=== PATIENT | female | born 1940 | race Caucasian/White ===

== ENCOUNTER 2016-12-30 11:05 | Outpatient (CLI) | payer MEDICARE, BC ==
[~2016-12-30 11:05] MED LIST: CLIN300C97 PO; HYDR1TAB4 PO; LEVO25TA9 PO; PRED5TAB PO; RIVA10TA PO; TRAM50TA2 PO
== END 2016-12-30 23:59 | disposition home health service (06) ==
LOC: WOU 11:05
PROVIDERS: ATTEND Podiatrist Foot & Ankle Surgery
DX: S91.011D Laceration without foreign body, right ankle, subsequent encounter (principal); W54.1XXD Struck by dog, subsequent encounter; M35.3 Polymyalgia rheumatica; R60.0 Localized edema; I87.2 Venous insufficiency (chronic) (peripheral); T86.821 Skin graft (allograft) (autograft) failure; Z87.891 Personal history of nicotine dependence
CPT/HCPCS: A6402 ×2; A6452; G0463

== ENCOUNTER 2017-02-10 11:32 | Outpatient (CLI) | payer MEDICARE, BC | END 2017-02-10 23:59 | disposition home health service (06) | LOC: WOU 11:32 | PROVIDERS: ATTEND Podiatrist Foot & Ankle Surgery | DX: T86.821 Skin graft (allograft) (autograft) failure (principal); L97.312 Non-pressure chronic ulcer of right ankle with fat layer exposed; S91.01 Laceration without foreign body of ankle; W54.1XXS Struck by dog, sequela; M35.3 Polymyalgia rheumatica; I87.2 Venous insufficiency (chronic) (peripheral); R60.0 Localized edema; Z96.643 Presence of artificial hip joint, bilateral; Z96.651 Presence of right artificial knee joint | CPT/HCPCS: A6207; A6402; A6452; G0463 ==

== ENCOUNTER 2017-02-20 09:27 | Outpatient (CLI) | payer MEDICARE, BC | END 2017-02-20 23:59 | disposition home health service (06) | LOC: WOU 09:27 | PROVIDERS: ATTEND Podiatrist Foot & Ankle Surgery | DX: M35.3 Polymyalgia rheumatica (principal); L97.312 Non-pressure chronic ulcer of right ankle with fat layer exposed; E87.2 Acidosis; R60.0 Localized edema; Z96.643 Presence of artificial hip joint, bilateral; Z96.651 Presence of right artificial knee joint; Z87.891 Personal history of nicotine dependence; Z86.718 Personal history of other venous thrombosis and embolism; Z88.0 Allergy status to penicillin | CPT/HCPCS: A6207; A6402; A6452; G0463; J3490 ==

== ENCOUNTER 2017-02-27 10:25 | Outpatient (CLI) | payer MEDICARE, BC | END 2017-02-27 23:59 | disposition home health service (06) | LOC: WOU 10:25 | PROVIDERS: ATTEND Podiatrist Foot & Ankle Surgery | DX: L97.312 Non-pressure chronic ulcer of right ankle with fat layer exposed (principal); S91.01 Laceration without foreign body of ankle; W54.1XXS Struck by dog, sequela; M35.3 Polymyalgia rheumatica; Z88.0 Allergy status to penicillin; R60.0 Localized edema; T86.821 Skin graft (allograft) (autograft) failure; I87.2 Venous insufficiency (chronic) (peripheral) | CPT/HCPCS: A6207; A6402; A6452; G0463 ==

== ENCOUNTER 2017-03-06 09:11 | Outpatient (CLI) | payer MEDICARE, BC | END 2017-03-06 23:59 | disposition home or self-care (01) | LOC: WOU 09:11 | PROVIDERS: ATTEND Podiatrist Foot & Ankle Surgery | DX: L97.312 Non-pressure chronic ulcer of right ankle with fat layer exposed (principal); S91.01 Laceration without foreign body of ankle; W54.1XXS Struck by dog, sequela; M35.3 Polymyalgia rheumatica; Z88.0 Allergy status to penicillin; R60.0 Localized edema; T86.821 Skin graft (allograft) (autograft) failure; I87.2 Venous insufficiency (chronic) (peripheral) | CPT/HCPCS: A6207; A6402; A6452; G0463 ==

== ENCOUNTER 2017-03-20 09:23 | Outpatient (CLI) | payer MEDICARE, BC | END 2017-03-20 23:59 | disposition home health service (06) | LOC: WOU 09:23 | PROVIDERS: ATTEND Podiatrist Foot & Ankle Surgery | DX: L97.312 Non-pressure chronic ulcer of right ankle with fat layer exposed (principal); S91.01 Laceration without foreign body of ankle; W54.1XXS Struck by dog, sequela; M35.3 Polymyalgia rheumatica; T86.821 Skin graft (allograft) (autograft) failure; R60.0 Localized edema; Z88.0 Allergy status to penicillin; I87.2 Venous insufficiency (chronic) (peripheral); Z96.643 Presence of artificial hip joint, bilateral; Z96.651 Presence of right artificial knee joint; Z86.718 Personal history of other venous thrombosis and embolism | CPT/HCPCS: A6207; A6402; A6452; G0463 ==

== ENCOUNTER 2017-03-27 09:45 | Outpatient (CLI) | payer MEDICARE, BC | END 2017-03-27 23:59 | disposition home health service (06) | LOC: WOU 09:45 | PROVIDERS: ATTEND Podiatrist Foot & Ankle Surgery | DX: S91.011D Laceration without foreign body, right ankle, subsequent encounter (principal); W54.1XXD Struck by dog, subsequent encounter; M35.3 Polymyalgia rheumatica; T86.821 Skin graft (allograft) (autograft) failure; I87.2 Venous insufficiency (chronic) (peripheral); R60.0 Localized edema; Z87.891 Personal history of nicotine dependence | CPT/HCPCS: A6207; A6402; A6452; G0463 ==

== ENCOUNTER 2017-04-03 09:06 | Day surgery (SDC) | payer MEDICARE, BC ==
[2017-04-03] MEDS ORDERED: MINERAL OIL 10 ML VIAL MC ONE (10:32)
[2017-04-03] MEDS ORDERED: LIDOCAINE HCL/PF 1% 30 ML SDV ONE (10:32)
[2017-04-03] MEDS ORDERED: BUPIVACAINE MPF 0.5% W/EPI INJ 30 ML VIAL ONE (10:32)
[2017-04-03] MEDS ORDERED: CLINDAMYCIN 900 MG/6 ML VIAL ONE (10:55)
[2017-04-03] MEDS ORDERED: MIDAZOLAM HCL 2 MG/2ML VIAL ONE (10:56)
[2017-04-03] MEDS ORDERED: FENTANYL PF 100MCG/2ML AMPUL ONE (10:56)
[2017-04-03] MEDS ORDERED: oxyCODONE/APAP (5/325 MG) 1 UDTAB TABLET ONE (12:44)
[2017-04-03] MEDS ORDERED: oxyCODONE/APAP (5/325 MG) 1 UDTAB TABLET PO ONE (13:00)
== END 2017-04-03 13:25 | disposition home or self-care (01) ==
LOC: DS 09:06
PROVIDERS: ATTEND Podiatrist Foot & Ankle Surgery
DX: S91.051A Open bite, right ankle, initial encounter (principal); W54.0XXA Bitten by dog, initial encounter; Y93.89 Activity, other specified; Y92.89 Other specified places as the place of occurrence of the external cause; Y99.8 Other external cause status; M35.3 Polymyalgia rheumatica; I10 Essential (primary) hypertension; Z90.710 Acquired absence of both cervix and uterus
CPT/HCPCS: 11043; 11046; A6209; A6402; J2250; J2704; J3010; J3490 ×3; Z7610

== ENCOUNTER 2017-04-07 10:45 | Outpatient (CLI) | payer MEDICARE, BC | END 2017-04-07 23:59 | disposition home health service (06) | LOC: WOU 10:45 | PROVIDERS: ATTEND Podiatrist Foot & Ankle Surgery | DX: T86.821 Skin graft (allograft) (autograft) failure (principal); L97.312 Non-pressure chronic ulcer of right ankle with fat layer exposed; M35.3 Polymyalgia rheumatica; I87.2 Venous insufficiency (chronic) (peripheral); S91.01 Laceration without foreign body of ankle; W54.1XXS Struck by dog, sequela; Z86.718 Personal history of other venous thrombosis and embolism; Z96.651 Presence of right artificial knee joint; Z96.643 Presence of artificial hip joint, bilateral; Z87.891 Personal history of nicotine dependence | CPT/HCPCS: 11042; 11045; 97605; A6402 ==

== ENCOUNTER → 2017-04-10 | Outpatient (CLI) | payer MEDICARE, BC | END | disposition home health service (06) | LOC: WOU 10:45 | PROVIDERS: ATTEND Podiatrist Foot & Ankle Surgery | DX: S91.011D Laceration without foreign body, right ankle, subsequent encounter (principal); W54.1XXD Struck by dog, subsequent encounter; M35.3 Polymyalgia rheumatica; T86.821 Skin graft (allograft) (autograft) failure; M79.661 Pain in right lower leg; I87.2 Venous insufficiency (chronic) (peripheral); Z87.891 Personal history of nicotine dependence; Z96.643 Presence of artificial hip joint, bilateral; Z96.651 Presence of right artificial knee joint; Z86.718 Personal history of other venous thrombosis and embolism; L97.312 Non-pressure chronic ulcer of right ankle with fat layer exposed | CPT/HCPCS: A6402; A6452; G0463 ==

== ENCOUNTER 2017-04-14 10:40 | Outpatient (CLI) | payer MEDICARE, BC | END 2017-04-14 23:59 | disposition home health service (06) | LOC: WOU 10:40 | PROVIDERS: ATTEND Podiatrist Foot & Ankle Surgery | DX: T86.821 Skin graft (allograft) (autograft) failure (principal); M35.3 Polymyalgia rheumatica; L97.312 Non-pressure chronic ulcer of right ankle with fat layer exposed; I87.2 Venous insufficiency (chronic) (peripheral); Z87.891 Personal history of nicotine dependence; Z96.643 Presence of artificial hip joint, bilateral; Z96.651 Presence of right artificial knee joint; Z86.718 Personal history of other venous thrombosis and embolism; S91.01 Laceration without foreign body of ankle; W54.1XXS Struck by dog, sequela | CPT/HCPCS: 11042; 11045; A6207; A6402; A6452 ==

== ENCOUNTER 2017-04-17 10:13 | Outpatient (CLI) | payer MEDICARE, BC | END 2017-04-17 23:59 | disposition home health service (06) | LOC: WOU 10:13 | PROVIDERS: ATTEND Podiatrist Foot & Ankle Surgery | DX: M35.3 Polymyalgia rheumatica (principal); L97.312 Non-pressure chronic ulcer of right ankle with fat layer exposed; S91.01 Laceration without foreign body of ankle; W54.1XXS Struck by dog, sequela; T86.821 Skin graft (allograft) (autograft) failure; I87.2 Venous insufficiency (chronic) (peripheral); R60.0 Localized edema; Z87.891 Personal history of nicotine dependence; Z86.718 Personal history of other venous thrombosis and embolism; Z88.0 Allergy status to penicillin | CPT/HCPCS: A6402 ×2; A6452; G0463 ==

== ENCOUNTER 2017-04-24 10:05 | Outpatient (CLI) | payer MEDICARE, BC | END 2017-04-24 23:59 | disposition home health service (06) | LOC: WOU 10:05 | PROVIDERS: ATTEND Podiatrist Foot & Ankle Surgery | DX: S91.011D Laceration without foreign body, right ankle, subsequent encounter (principal); W54.1XXD Struck by dog, subsequent encounter; R60.0 Localized edema; M35.3 Polymyalgia rheumatica; Z96.643 Presence of artificial hip joint, bilateral; Z96.651 Presence of right artificial knee joint; Z86.718 Personal history of other venous thrombosis and embolism; Z87.891 Personal history of nicotine dependence; M79.661 Pain in right lower leg | CPT/HCPCS: A6207; A6402; A6452; G0463 ==

== ENCOUNTER 2017-05-05 10:22 | Outpatient (CLI) | payer MEDICARE, BC | END 2017-05-05 23:59 | disposition home health service (06) | LOC: WOU 10:22 | PROVIDERS: ATTEND Podiatrist Foot & Ankle Surgery | DX: L97.312 Non-pressure chronic ulcer of right ankle with fat layer exposed (principal); M35.3 Polymyalgia rheumatica; R60.0 Localized edema; T86.821 Skin graft (allograft) (autograft) failure; I87.2 Venous insufficiency (chronic) (peripheral); S91.01 Laceration without foreign body of ankle; W54.1XXS Struck by dog, sequela | CPT/HCPCS: A6207; A6402; A6452; G0463 ==

== ENCOUNTER 2017-05-08 11:31 | Day surgery (SDC) | payer MEDICARE, BC ==
[2017-05-08] MEDS ORDERED: IV NS 0.9% 1,000 ML ONE (12:22)
[2017-05-08] MEDS ORDERED: IV SET PRIMARY 1 EA INFUS.SET MC ONE (12:22)
[2017-05-08] MEDS ORDERED: NEEDLELESS EST SET LARGE BORE 1 EA INFUS.SET MC ONE (12:22)
[2017-05-08] MEDS ORDERED: FENTANYL PF 100MCG/2ML AMPUL ONE ×2 (12:42→14:22)
[2017-05-08] MEDS ORDERED: BUPIVACAINE MPF 0.5% W/EPI INJ 30 ML VIAL ONE (12:48)
[2017-05-08] MEDS ORDERED: CLINDAMYCIN 900 MG/6 ML VIAL ONE (12:49)
[2017-05-08] MEDS ORDERED: MINERAL OIL 10 ML VIAL MC ONE (12:50)
[2017-05-08] MEDS ORDERED: BUPIVACAINE 0.5 % PF 150 MG/30 ML VIAL ONE (13:24)
[2017-05-08] MEDS ORDERED: oxyCODONE/APAP (5/325 MG) 1 UDTAB TABLET ONE (14:47)
[2017-05-08] MEDS ORDERED: ANESTHESIA TRAY IN PYXIS 1 EA TRAY MC ONE (15:01)
[2017-05-08] MEDS ORDERED: oxyCODONE/APAP (5/325 MG) 1 UDTAB TABLET PO PRN (16:00)
== END 2017-05-08 15:25 | disposition home or self-care (01) ==
LOC: DS 11:31
PROVIDERS: ATTEND Podiatrist Foot & Ankle Surgery
DX: S91.001A Unspecified open wound, right ankle, initial encounter (principal); X58.XXXA Exposure to other specified factors, initial encounter; Y93.89 Activity, other specified; Y92.89 Other specified places as the place of occurrence of the external cause; Y99.8 Other external cause status; M35.3 Polymyalgia rheumatica; D64.89 Other specified anemias; I10 Essential (primary) hypertension; I05.8 Other rheumatic mitral valve diseases; E53.8 Deficiency of other specified B group vitamins; Z88.0 Allergy status to penicillin; Z88.8 Allergy status to other drugs, medicaments and biological substances
CPT/HCPCS: A6209; A6402; J1100; J2405; J2704; J3010; J3490; J7030

== ENCOUNTER 2017-05-12 10:30 | Outpatient (CLI) | payer MEDICARE, BC | END 2017-05-12 23:59 | disposition home health service (06) | LOC: WOU 10:30 | PROVIDERS: ATTEND Podiatrist Foot & Ankle Surgery | DX: Z48.817 Encounter for surgical aftercare following surgery on the skin and subcutaneous tissue (principal); M35.3 Polymyalgia rheumatica; M06.9 Rheumatoid arthritis, unspecified; Z87.891 Personal history of nicotine dependence; I87.2 Venous insufficiency (chronic) (peripheral); R60.0 Localized edema; L97.319 Non-pressure chronic ulcer of right ankle with unspecified severity; S91.01 Laceration without foreign body of ankle; W54.1XXS Struck by dog, sequela | CPT/HCPCS: A6207; A6402; A6452; G0463; J3490 ==

== ENCOUNTER 2017-05-15 10:30 | Outpatient (CLI) | payer MEDICARE, BC | END 2017-05-15 23:59 | disposition home health service (06) | LOC: WOU 10:30 | PROVIDERS: ATTEND Podiatrist Foot & Ankle Surgery | DX: L97.311 Non-pressure chronic ulcer of right ankle limited to breakdown of skin (principal); T86.821 Skin graft (allograft) (autograft) failure; M35.3 Polymyalgia rheumatica; R60.0 Localized edema; I87.2 Venous insufficiency (chronic) (peripheral); S91.01 Laceration without foreign body of ankle; W54.1XXS Struck by dog, sequela; Z86.718 Personal history of other venous thrombosis and embolism | CPT/HCPCS: A6207; A6402; A6452; G0463 ==

== ENCOUNTER 2017-05-19 10:18 | Outpatient (CLI) | payer MEDICARE, BC | END 2017-05-19 23:59 | disposition home health service (06) | LOC: WOU 10:18 | PROVIDERS: ATTEND Podiatrist Foot & Ankle Surgery | DX: T86.821 Skin graft (allograft) (autograft) failure (principal); M35.3 Polymyalgia rheumatica; L97.311 Non-pressure chronic ulcer of right ankle limited to breakdown of skin; S91.01 Laceration without foreign body of ankle; W54.1XXS Struck by dog, sequela; S91.012A Laceration without foreign body, left ankle, initial encounter; X58.XXXA Exposure to other specified factors, initial encounter; Y92.89 Other specified places as the place of occurrence of the external cause | CPT/HCPCS: A6207; A6402; A6452; G0463 ==

== ENCOUNTER 2017-05-20 08:33 | Outpatient (CLI) | payer MEDICARE, BC | END 2017-05-20 23:59 | disposition home or self-care (01) | LOC: WOU 08:33 | PROVIDERS: ATTEND Specialist | DX: T86.821 Skin graft (allograft) (autograft) failure (principal); L97.311 Non-pressure chronic ulcer of right ankle limited to breakdown of skin; S91.01 Laceration without foreign body of ankle; W54.1XXS Struck by dog, sequela; M35.3 Polymyalgia rheumatica; I87.2 Venous insufficiency (chronic) (peripheral); R60.0 Localized edema; Z96.643 Presence of artificial hip joint, bilateral; Z96.651 Presence of right artificial knee joint; Z87.891 Personal history of nicotine dependence; Z79.899 Other long term (current) drug therapy; Z86.718 Personal history of other venous thrombosis and embolism; Z88.0 Allergy status to penicillin; Z80.9 Family history of malignant neoplasm, unspecified; Z84.89 Family history of other specified conditions; M06.9 Rheumatoid arthritis, unspecified | CPT/HCPCS: A6402 ×2; A6452; G0463 ==

== ENCOUNTER 2017-05-26 12:03 | Outpatient (CLI) | payer MEDICARE, BC | END 2017-05-26 23:59 | disposition home health service (06) | LOC: WOU 12:03 | PROVIDERS: ATTEND Podiatrist Foot & Ankle Surgery | DX: T86.828 Other complications of skin graft (allograft) (autograft) (principal); L97.311 Non-pressure chronic ulcer of right ankle limited to breakdown of skin; S91.01 Laceration without foreign body of ankle; W54.1XXS Struck by dog, sequela; M35.3 Polymyalgia rheumatica; I87.2 Venous insufficiency (chronic) (peripheral); R60.0 Localized edema; Z96.643 Presence of artificial hip joint, bilateral; Z96.651 Presence of right artificial knee joint; Z87.891 Personal history of nicotine dependence; Z79.899 Other long term (current) drug therapy; Z86.718 Personal history of other venous thrombosis and embolism; Z80.9 Family history of malignant neoplasm, unspecified; Z84.89 Family history of other specified conditions; M06.9 Rheumatoid arthritis, unspecified | CPT/HCPCS: A6207; A6402; A6452; G0463 ==

== ENCOUNTER 2017-06-12 11:57 | Outpatient (CLI) | payer MEDICARE, BC | END 2017-06-12 23:59 | disposition home health service (06) | LOC: WOU 11:57 | PROVIDERS: ATTEND Podiatrist Foot & Ankle Surgery | DX: T86.828 Other complications of skin graft (allograft) (autograft) (principal); L97.311 Non-pressure chronic ulcer of right ankle limited to breakdown of skin; I87.2 Venous insufficiency (chronic) (peripheral); S91.011D Laceration without foreign body, right ankle, subsequent encounter; W54.1XXD Struck by dog, subsequent encounter; R60.0 Localized edema; M35.3 Polymyalgia rheumatica; Z87.891 Personal history of nicotine dependence; M06.9 Rheumatoid arthritis, unspecified; Z88.0 Allergy status to penicillin; Z79.899 Other long term (current) drug therapy; Z86.718 Personal history of other venous thrombosis and embolism | CPT/HCPCS: A6207; A6402; A6452; G0463 ==

== ENCOUNTER 2017-06-26 11:30 | Outpatient (CLI) | payer MEDICARE, BC | END 2017-06-26 23:59 | disposition home health service (06) | LOC: WOU 11:30 | PROVIDERS: ATTEND Podiatrist Foot & Ankle Surgery | DX: T86.821 Skin graft (allograft) (autograft) failure (principal); S91.011D Laceration without foreign body, right ankle, subsequent encounter; W54.1XXD Struck by dog, subsequent encounter; S91.012D Laceration without foreign body, left ankle, subsequent encounter; X58.XXXD Exposure to other specified factors, subsequent encounter; Z96.643 Presence of artificial hip joint, bilateral; Z96.651 Presence of right artificial knee joint; Z86.718 Personal history of other venous thrombosis and embolism; Z87.891 Personal history of nicotine dependence; M06.9 Rheumatoid arthritis, unspecified; M35.3 Polymyalgia rheumatica; I87.2 Venous insufficiency (chronic) (peripheral); R60.0 Localized edema | CPT/HCPCS: A6402 ×2; G0463 ==

== ENCOUNTER 2017-07-08 10:30 | Outpatient (CLI) | payer MEDICARE, BC | END 2017-07-08 23:59 | disposition home health service (06) | LOC: WOU 10:30 | PROVIDERS: ATTEND Specialist | DX: S91.012D Laceration without foreign body, left ankle, subsequent encounter (principal); T86.821 Skin graft (allograft) (autograft) failure; M35.3 Polymyalgia rheumatica; W54.1XXD Struck by dog, subsequent encounter; I87.2 Venous insufficiency (chronic) (peripheral); L97.311 Non-pressure chronic ulcer of right ankle limited to breakdown of skin; R60.0 Localized edema; Z88.0 Allergy status to penicillin; L59.8 Other specified disorders of the skin and subcutaneous tissue related to radiation; M06.9 Rheumatoid arthritis, unspecified; Z79.899 Other long term (current) drug therapy; Z96.643 Presence of artificial hip joint, bilateral; Z96.651 Presence of right artificial knee joint | CPT/HCPCS: 87070; 87077; A6402 ×2; G0463 ==

== ENCOUNTER 2017-07-16 11:45 | Outpatient (CLI) | payer MEDICARE, BC | END 2017-07-16 23:59 | disposition home health service (06) | LOC: WOU 11:45 | PROVIDERS: ATTEND Specialist | DX: S91.012D Laceration without foreign body, left ankle, subsequent encounter (principal); T86.821 Skin graft (allograft) (autograft) failure; M35.3 Polymyalgia rheumatica; W54.1XXD Struck by dog, subsequent encounter; I87.2 Venous insufficiency (chronic) (peripheral); L97.311 Non-pressure chronic ulcer of right ankle limited to breakdown of skin; R60.0 Localized edema; Z88.0 Allergy status to penicillin; L59.8 Other specified disorders of the skin and subcutaneous tissue related to radiation; M06.9 Rheumatoid arthritis, unspecified; Z79.899 Other long term (current) drug therapy; Z96.643 Presence of artificial hip joint, bilateral; Z96.651 Presence of right artificial knee joint; L03.115 Cellulitis of right lower limb | CPT/HCPCS: A6207; A6402; G0463 ==

== ENCOUNTER 2017-07-24 09:20 | Outpatient (CLI) | payer MEDICARE, BC | END 2017-07-24 23:59 | disposition home health service (06) | LOC: WOU 09:20 | PROVIDERS: ATTEND Podiatrist Foot & Ankle Surgery | DX: T86.821 Skin graft (allograft) (autograft) failure (principal); S91.011D Laceration without foreign body, right ankle, subsequent encounter; W54.1XXD Struck by dog, subsequent encounter; M35.3 Polymyalgia rheumatica; M79.661 Pain in right lower leg; I87.2 Venous insufficiency (chronic) (peripheral); R60.0 Localized edema; L97.311 Non-pressure chronic ulcer of right ankle limited to breakdown of skin; L03.115 Cellulitis of right lower limb; T86.828 Other complications of skin graft (allograft) (autograft); Z87.891 Personal history of nicotine dependence | CPT/HCPCS: A6402; G0463 ==

== ENCOUNTER 2017-08-14 10:45 | Outpatient (CLI) | payer MEDICARE, BC | END 2017-08-14 23:59 | disposition home health service (06) | LOC: WOU 10:45 | PROVIDERS: ATTEND Podiatrist Foot & Ankle Surgery | DX: S91.011D Laceration without foreign body, right ankle, subsequent encounter (principal); W54.1XXD Struck by dog, subsequent encounter; T86.828 Other complications of skin graft (allograft) (autograft); M35.3 Polymyalgia rheumatica; I87.2 Venous insufficiency (chronic) (peripheral); M79.661 Pain in right lower leg; L97.311 Non-pressure chronic ulcer of right ankle limited to breakdown of skin; Z96.643 Presence of artificial hip joint, bilateral; Z96.651 Presence of right artificial knee joint; Z87.891 Personal history of nicotine dependence; Z79.899 Other long term (current) drug therapy | CPT/HCPCS: A6452; G0463 ==

== ENCOUNTER 2017-08-28 09:26 | Outpatient (CLI) | payer MEDICARE, BC | END 2017-08-28 23:59 | disposition home or self-care (01) | LOC: WOU 09:26 | PROVIDERS: ATTEND Podiatrist Foot & Ankle Surgery | DX: T86.828 Other complications of skin graft (allograft) (autograft) (principal); L03.115 Cellulitis of right lower limb; R60.0 Localized edema; M35.3 Polymyalgia rheumatica; L97.812 Non-pressure chronic ulcer of other part of right lower leg with fat layer exposed; T14.90 Injury, unspecified; W54.1XXS Struck by dog, sequela; I87.2 Venous insufficiency (chronic) (peripheral); S91.012D Laceration without foreign body, left ankle, subsequent encounter; X58.XXXD Exposure to other specified factors, subsequent encounter; Z86.718 Personal history of other venous thrombosis and embolism | CPT/HCPCS: 11042; A6207; A6402; A6452 ==

== ENCOUNTER 2017-09-04 09:47 | Outpatient (CLI) | payer MEDICARE, BC | END 2017-09-04 23:59 | disposition home or self-care (01) | LOC: WOU 09:47 | PROVIDERS: ATTEND Podiatrist Foot & Ankle Surgery | DX: L97.812 Non-pressure chronic ulcer of other part of right lower leg with fat layer exposed (principal); T86.821 Skin graft (allograft) (autograft) failure; M35.3 Polymyalgia rheumatica; I87.2 Venous insufficiency (chronic) (peripheral); R60.0 Localized edema; L03.115 Cellulitis of right lower limb; S91.012D Laceration without foreign body, left ankle, subsequent encounter; W54.1XXD Struck by dog, subsequent encounter; Z88.0 Allergy status to penicillin; Z86.718 Personal history of other venous thrombosis and embolism; Z96.643 Presence of artificial hip joint, bilateral; Z96.651 Presence of right artificial knee joint | CPT/HCPCS: A6207; A6402; A6452; G0463 ==

== ENCOUNTER 2017-10-06 10:45 | Outpatient (CLI) | payer MEDICARE, BC | END 2017-10-06 23:59 | disposition home or self-care (01) | LOC: WOU 10:45 | PROVIDERS: ATTEND Podiatrist Foot & Ankle Surgery | DX: T86.828 Other complications of skin graft (allograft) (autograft) (principal); S91.012D Laceration without foreign body, left ankle, subsequent encounter; W54.1XXD Struck by dog, subsequent encounter; I87.2 Venous insufficiency (chronic) (peripheral); L97.812 Non-pressure chronic ulcer of other part of right lower leg with fat layer exposed; M35.3 Polymyalgia rheumatica; Z79.899 Other long term (current) drug therapy; Z79.52 Long term (current) use of systemic steroids; Z86.718 Personal history of other venous thrombosis and embolism; Z87.891 Personal history of nicotine dependence; Z96.643 Presence of artificial hip joint, bilateral; Z96.651 Presence of right artificial knee joint; Z92.3 Personal history of irradiation | CPT/HCPCS: A6207; A6402; A6452; G0463 ==

== ENCOUNTER 2018-01-01 10:00 | Outpatient (CLI) | payer MEDICARE, BC ==
[~2018-01-01 10:00] MED LIST changes: +CLIN300C11 PO; -CLIN300C97 PO
== END 2018-01-01 23:59 | disposition home health service (06) ==
LOC: WOU 10:00
PROVIDERS: ATTEND Podiatrist Foot & Ankle Surgery
DX: I87.311 Chronic venous hypertension (idiopathic) with ulcer of right lower extremity (principal); Z79.52 Long term (current) use of systemic steroids; L97.819 Non-pressure chronic ulcer of other part of right lower leg with unspecified severity; M35.3 Polymyalgia rheumatica; M79.661 Pain in right lower leg
CPT/HCPCS: 11042; A6207; A6402 ×2; A6452

== ENCOUNTER 2018-01-06 14:00 | Outpatient (CLI) | payer MEDICARE, BC | END 2018-01-06 23:59 | disposition home or self-care (01) | LOC: WOU 14:00 | PROVIDERS: ATTEND Podiatrist Foot & Ankle Surgery | DX: I82.433 Acute embolism and thrombosis of popliteal vein, bilateral (principal); L97.909 Non-pressure chronic ulcer of unspecified part of unspecified lower leg with unspecified severity | CPT/HCPCS: 93970-TC ==

== ENCOUNTER → 2018-01-08 | Outpatient (CLI) | payer MEDICARE, BC | END | disposition home health service (06) | LOC: WOU 10:30 | PROVIDERS: ATTEND Podiatrist Foot & Ankle Surgery | DX: I87.311 Chronic venous hypertension (idiopathic) with ulcer of right lower extremity (principal); L97.812 Non-pressure chronic ulcer of other part of right lower leg with fat layer exposed; M35.3 Polymyalgia rheumatica; M79.661 Pain in right lower leg; Z96.643 Presence of artificial hip joint, bilateral; Z96.651 Presence of right artificial knee joint; Z79.52 Long term (current) use of systemic steroids; Z79.899 Other long term (current) drug therapy | CPT/HCPCS: 11042; A6207; A6402; A6452 ==

== ENCOUNTER 2018-01-26 10:00 | Outpatient (CLI) | payer MEDICARE, BC | END 2018-01-26 23:59 | disposition home health service (06) | LOC: WOU 10:00 | PROVIDERS: ATTEND Podiatrist Foot & Ankle Surgery | DX: I87.331 Chronic venous hypertension (idiopathic) with ulcer and inflammation of right lower extremity (principal); L97.812 Non-pressure chronic ulcer of other part of right lower leg with fat layer exposed; M35.3 Polymyalgia rheumatica; M79.661 Pain in right lower leg; Z86.718 Personal history of other venous thrombosis and embolism; Z88.0 Allergy status to penicillin; Z79.52 Long term (current) use of systemic steroids; Z96.643 Presence of artificial hip joint, bilateral; Z96.651 Presence of right artificial knee joint | CPT/HCPCS: A6207; A6402; A6452; G0463 ==

== ENCOUNTER 2018-02-02 10:16 | Outpatient (CLI) | payer MEDICARE, BC | END 2018-02-02 23:59 | disposition home health service (06) | LOC: WOU 10:16 | PROVIDERS: ATTEND Podiatrist Foot & Ankle Surgery | DX: I87.331 Chronic venous hypertension (idiopathic) with ulcer and inflammation of right lower extremity (principal); L97.812 Non-pressure chronic ulcer of other part of right lower leg with fat layer exposed; M35.3 Polymyalgia rheumatica; M79.661 Pain in right lower leg; Z96.643 Presence of artificial hip joint, bilateral; Z96.651 Presence of right artificial knee joint; Z86.718 Personal history of other venous thrombosis and embolism; Z87.891 Personal history of nicotine dependence | CPT/HCPCS: A6207; A6402; A6452; G0463 ==

== ENCOUNTER 2018-02-16 09:45 | Outpatient (CLI) | payer MEDICARE, BC | END 2018-02-16 23:59 | disposition home health service (06) | LOC: WOU 09:45 | PROVIDERS: ATTEND Podiatrist Foot & Ankle Surgery | DX: I87.331 Chronic venous hypertension (idiopathic) with ulcer and inflammation of right lower extremity (principal); L97.812 Non-pressure chronic ulcer of other part of right lower leg with fat layer exposed; Z87.891 Personal history of nicotine dependence; Z96.643 Presence of artificial hip joint, bilateral; Z96.651 Presence of right artificial knee joint; M35.3 Polymyalgia rheumatica; Z79.52 Long term (current) use of systemic steroids; I82.533 Chronic embolism and thrombosis of popliteal vein, bilateral; Z88.0 Allergy status to penicillin | CPT/HCPCS: A6207; A6402; A6452; G0463 ==

== ENCOUNTER 2018-03-16 10:00 | Outpatient (CLI) | payer MEDICARE, BC | END 2018-03-16 23:59 | disposition home health service (06) | LOC: WOU 10:00 | PROVIDERS: ATTEND Podiatrist Foot & Ankle Surgery | DX: I87.333 Chronic venous hypertension (idiopathic) with ulcer and inflammation of bilateral lower extremity (principal); L97.322 Non-pressure chronic ulcer of left ankle with fat layer exposed; L97.812 Non-pressure chronic ulcer of other part of right lower leg with fat layer exposed; Z96.643 Presence of artificial hip joint, bilateral; Z96.651 Presence of right artificial knee joint; Z87.891 Personal history of nicotine dependence; M35.3 Polymyalgia rheumatica; Z86.718 Personal history of other venous thrombosis and embolism; Z79.52 Long term (current) use of systemic steroids | CPT/HCPCS: A6207; A6402; A6452; G0463 ==

== ENCOUNTER 2019-04-01 10:35 | Outpatient (CLI) | payer MEDICARE, BC | END 2019-04-01 23:59 | disposition home health service (06) | LOC: WOU 10:35 | PROVIDERS: ATTEND Podiatrist Foot & Ankle Surgery | DX: I87.311 Chronic venous hypertension (idiopathic) with ulcer of right lower extremity (principal); L97.312 Non-pressure chronic ulcer of right ankle with fat layer exposed; M35.3 Polymyalgia rheumatica; M79.661 Pain in right lower leg; Z96.643 Presence of artificial hip joint, bilateral; Z96.651 Presence of right artificial knee joint; Z86.718 Personal history of other venous thrombosis and embolism; Z79.52 Long term (current) use of systemic steroids; Z87.891 Personal history of nicotine dependence | CPT/HCPCS: A6402 ×2; G0463 ==

== ENCOUNTER 2019-06-17 10:20 | Outpatient (CLI) | payer MEDICARE, BC | END 2019-06-17 23:59 | disposition home health service (06) | LOC: WOU 10:20 | PROVIDERS: ATTEND Podiatrist Foot & Ankle Surgery | DX: I87.333 Chronic venous hypertension (idiopathic) with ulcer and inflammation of bilateral lower extremity (principal); L97.322 Non-pressure chronic ulcer of left ankle with fat layer exposed; L97.312 Non-pressure chronic ulcer of right ankle with fat layer exposed; M35.3 Polymyalgia rheumatica; M79.661 Pain in right lower leg; M79.662 Pain in left lower leg; Z86.718 Personal history of other venous thrombosis and embolism; Z96.643 Presence of artificial hip joint, bilateral; Z96.651 Presence of right artificial knee joint; Z87.891 Personal history of nicotine dependence | CPT/HCPCS: A6402; A6452; G0463 ==

== ENCOUNTER 2019-07-01 11:03 | Outpatient (CLI) | payer MEDICARE, BC | END 2019-07-01 23:59 | disposition home health service (06) | LOC: WOU 11:03 | PROVIDERS: ATTEND Podiatrist Foot & Ankle Surgery | DX: I87.333 Chronic venous hypertension (idiopathic) with ulcer and inflammation of bilateral lower extremity (principal); L97.322 Non-pressure chronic ulcer of left ankle with fat layer exposed; L97.312 Non-pressure chronic ulcer of right ankle with fat layer exposed; M35.3 Polymyalgia rheumatica; I87.2 Venous insufficiency (chronic) (peripheral); M79.661 Pain in right lower leg; M79.662 Pain in left lower leg; Z96.643 Presence of artificial hip joint, bilateral; Z96.651 Presence of right artificial knee joint; Z86.718 Personal history of other venous thrombosis and embolism | CPT/HCPCS: A6402; G0463 ==

== ENCOUNTER 2019-07-15 10:30 | Outpatient (CLI) | payer MEDICARE, BC | END 2019-07-15 23:59 | disposition home health service (06) | LOC: WOU 10:30 | PROVIDERS: ATTEND Podiatrist Foot & Ankle Surgery | DX: I87.313 Chronic venous hypertension (idiopathic) with ulcer of bilateral lower extremity (principal); L97.322 Non-pressure chronic ulcer of left ankle with fat layer exposed; L97.312 Non-pressure chronic ulcer of right ankle with fat layer exposed; M35.3 Polymyalgia rheumatica; M79.661 Pain in right lower leg; M79.662 Pain in left lower leg; Z87.891 Personal history of nicotine dependence; Z86.718 Personal history of other venous thrombosis and embolism | CPT/HCPCS: A6207 ×2; G0463 ==